=== PATIENT | female | born 1945 | race Caucasian/White ===

== ENCOUNTER → 2017-11-11 | Outpatient (REF) | payer MEDICARE, BC ==
[2017-11-11 14:12] LABS: RHEUMATOID FACTOR QUANT < 10.0 IU/ML (<15.0)
[2017-11-11 14:12] LABS: C REACTIVE PROTEIN QUANTITATIV < 0.30 MG/DL (0.00-0.30)
[2017-11-15 00:07] LABS: ANTINUCLEAR ANTIBODIES DIRECT Negative (Negative)
[2017-11-16 10:27] LABS: HEPATITIS C VIRUS ABY INDEX 0.1 INDEX (<0.8)
== END ==
LOC: M LAB REF 13:52
DX: M25.562 Pain in left knee (principal)
CPT/HCPCS: 86803

== ENCOUNTER → 2018-07-28 | Outpatient (REF) | payer MEDICARE, BC | LOC: M LAB REF 16:41 | PROVIDERS: ATTEND Physician Assistant | DX: R35.0 Frequency of micturition (principal) ==

== ENCOUNTER → 2019-11-27 | Outpatient (REF) | payer MEDICARE, BC | LOC: M LAB REF 12:24 | PROVIDERS: ATTEND Internal Medicine | DX: M76.62 Achilles tendinitis, left leg (principal) ==

== ENCOUNTER → 2021-01-12 | Outpatient (REF) | payer MEDICARE, BC | LOC: M LAB REF 12:23 | PROVIDERS: ATTEND Internal Medicine | DX: M19.90 Unspecified osteoarthritis, unspecified site (principal); D72.820 Lymphocytosis (symptomatic) ==

== ENCOUNTER → 2021-08-06 | Outpatient (REF) | payer MEDICARE, BC | LOC: M LAB REF 16:10 | PROVIDERS: ATTEND Internal Medicine | DX: N39.0 Urinary tract infection, site not specified (principal) ==

== ENCOUNTER → 2021-11-23 | Outpatient (REF) | payer MEDICARE, BC ==
[2021-11-23 12:33] LABS: ATYPICAL LYMPH 29 % (0-5); EOSINOPHILS 2 % (0-3); LYMPHOCYTES 36 % (16-44); MONOCYTES 9 % (0-5); NEUTROPHILS 24 % (28-66)
[2021-11-23 12:36] LABS: PLATELET ESTIMATE NORMAL (NORMAL)
== END ==
LOC: M LAB REF 11:55
PROVIDERS: ATTEND Internal Medicine
DX: D72.9 Disorder of white blood cells, unspecified (principal)

== ENCOUNTER → 2022-08-25 | Outpatient (CLI) | payer MEDICARE, BC | LOC: M WUC 15:09 | PROVIDERS: ATTEND Internal Medicine | DX: M25.552 Pain in left hip (principal) ==

== ENCOUNTER → 2023-08-16 | Outpatient (REF) | payer MEDICARE ==
[2023-08-16 19:53] LABS: ATYPICAL LYMPH 18 % (0-5); BASOPHILS 2 % (0-1); EOSINOPHILS 7 % (0-3); LYMPHOCYTES 39 % (16-44); MONOCYTES 4 % (0-5); NEUTROPHILS 30 % (28-66)
[2023-08-16 19:55] LABS: PLATELET ESTIMATE NORMAL (NORMAL); SMUDGE CELLS 1+
== END ==
LOC: M LAB REF 16:46
PROVIDERS: ATTEND Internal Medicine
DX: D72.9 Disorder of white blood cells, unspecified (principal)

== ENCOUNTER → 2024-10-11 | Outpatient (REF) | payer MEDICARE, OTHER ==
[2024-10-11 15:08] LABS: INR 0.89
[2024-10-11 19:26] LABS: ATYPICAL LYMPH 4 % (0-5); LYMPHOCYTES 60 % (16-44); MONOCYTES 1 % (0-5); NEUTROPHILS 35 % (28-66); PLATELET ESTIMATE NORMAL (NORMAL)
== END ==
LOC: M LAB REF 14:27
PROVIDERS: ATTEND Internal Medicine
DX: R23.3 Spontaneous ecchymoses (principal); C91.11 Chronic lymphocytic leukemia of B-cell type in remission

== ENCOUNTER → 2024-10-24 | Outpatient (REF) | payer MEDICARE ==
[2024-10-24 18:15] LABS: INR 0.93
== END ==
LOC: M LAB REF 17:44
PROVIDERS: ATTEND Internal Medicine
DX: C91.10 Chronic lymphocytic leukemia of B-cell type not having achieved remission (principal)